=== PATIENT | male | born 1950 | race Caucasian/White ===

== ENCOUNTER → 2017-04-16 | Outpatient (CLI) | payer MEDICARE, OTHER ==
[2017-04-16 10:27] LABS: BUN 20 mg/dL (7-18); PROSTATE-SPECIFIC ANTIGEN F/U 3.8 ng/mL (0.0-4.0)
[2017-04-16 10:32] LABS: GFR (ESTIMATED) 60 ML/MIN (>60)
== END ==
LOC: LAB 08:32
PROVIDERS: Internal Medicine Cardiovascular Disease
DX: I65.29 Occlusion and stenosis of unspecified carotid artery (principal); I25.10 Atherosclerotic heart disease of native coronary artery without angina pectoris; I77.1 Stricture of artery; I73.9 Peripheral vascular disease, unspecified; R97.20 Elevated prostate specific antigen [PSA]